=== PATIENT | female | born 1955 | race African-American/Black ===

== ENCOUNTER 2018-09-11 13:12 | Emergency (ER) | payer BC ==
[~2018-09-11] VITALS: Ht 170.2 cm; Wt 93.0 kg
[2018-09-11 13:49] VITALS: BP 134/72
--- NOTE | 2018-09-11 14:04 | Emergency Room Report ---
History of Present Illness General Chief Complaint: General Complaint Source: Patient Present Illness HPI 62yo F with a history of primary sclerosing cholangitis, liver failure, status post liver transplant, Crohn's disease, history of benign brain tumor status post resection, hypertension presents with swelling in bilateral lower extremities for the past 1 month. She also reports when she was walking up a hill yesterday she felt slightly short of breath. She called her doctor in [place] from where she is visiting, and told her she should come to the ER to be evaluated for possible blood clot. Patient denies any pain complaints, she reports her shortness of breath with walking up a hill was mild yesterday, and she reports she has been on 2 flights over the past 1 month. She denies any cough, hemoptysis, she's never had any blood clots in her life, she reports no chest pain at all today or earlier in this past month, she also denies palpitations, hemoptysis, recent surgery, recent malignancy treatment. Allergies: Coded Allergies: METRONIDAZOLE (Verified Allergy, Unknown, 09/11/18) Patient History Past Medical History: see triage record Reviewed Nursing Documentation: PMH: Agreed; PSxH: Agreed Nursing Documentation-PMH Past Medical History: No History, Except For Hx Cardiac Problems: No Hx Hypertension: Yes Hx Pacemaker: No Hx Asthma: No Hx COPD: No Hx Diabetes: No Hx Cancer: Yes - Liver cancer Hx Dialysis: No History Of Psychiatric Problem: No Hx Neurological Problems: No - Brain tumor (benign) Hx Cerebrovascular Accident: No Hx Seizures: Yes Review of Systems All Other Systems: negative except mentioned in HPI Physical Exam Vital Signs Date Time Temp Pulse Resp B/P (MAP) Pulse Ox O2 Delivery O2 Flow Rate FiO2 09/11/18 13:26 98.8 84 14 130/92 96 Room Air Sp02 EP Interpretation: reviewed, normal General Appearance: no apparent distress, alert, non-toxic Head: normocephalic Eyes: bilateral eye normal inspection, bilateral eye PERRL, bilateral eye EOMI ENT: normal ENT inspection, hearing grossly normal, normal pharynx, no angioedema, normal voice, moist mucus membranes Neck: normal inspection, full range of motion, supple, supple/symm/no masses Respiratory: chest non-tender, lungs clear, normal breath sounds, chest symmetrical, palpation of chest normal Cardiovascular #1: normal peripheral pulses, regular rate, rhythm, edema - 1+ b /l LE edema to mid tibias Cardiovascular #2: 2+ radial (R), 2+ radial (L) Gastrointestinal: normal inspection, non tender, soft, no mass, no guarding, no rebound Rectal: deferred Genitourinary: normal inspection, no CVA tenderness Musculoskeletal: back normal, gait/station normal, normal range of motion, non- tender, no calf tenderness, Sheron's Sign negative Neurologic: alert, responsive, 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 She reports 2 flights over the past month. She has no chest pain, is very well- appearing, normal vital signs, we'll obtain bilateral lower extremity ultrasound , d-dimer, chest x-ray, basic labs, she does not have full on anasarca, and is otherwise well-appearing and without complaint. D-dimer negative, duplex neg for dvt b/l LE, labs including bnp normal, cxr clear, VSS, patient with no complaint other than mild edema currently. Will dc. EKG Diagnostic Results EKG Time: 14:02 EP Interpretation: nsr rate 76, no [id number] Rate: normal Rhythm: NSR ST Segments: no acute changes ASA given to the pt in ED: No Rhythm Strip Diag. Results Rhythm Strip Time: 14:03 EP Interpretation: yes Rate: 76 Rhythm: NSR, no PVC's, no ectopy Chest X-Ray Diagnostic Results Chest X-Ray Diagnostic Results : Chest X-Ray Ordered: Yes # of Views/Limited/Complete: 1 View Indication: Shortness of Breath EP Interpretation: Yes Interpretation: no consolidation, no effusion, no pneumothorax, no acute cardiopulmonary disease Impression: No acute disease Electronically Signed by: Jeanine Dorsey MD CT/MRI/US Diagnostic Results CT/MRI/US Diagnostic Results : Imaging Test Ordered: B/L LE duplex Impression B/L negative for dvt per instrument technologist Last Vital Signs Date Time Temp Pulse Resp B/P (MAP) Pulse Ox O2 Delivery O2 Flow Rate FiO2 09/11/18 13:49 98.8 87 14 134/72 99 Room Air Disposition: HOME, SELF-CARE Condition: Stable JEANINE DORSEY M.D Sep 11, 2018 14:04
[2018-09-11 14:26] LABS: BASOPHILS % (AUTO) 1.1 % (0.0-2.0); EOSINOPHILS % (AUTO) 1.2 % (0.0-3.0); HEMOGLOBIN 13.2 G/DL (12.0-16.0); LYMPHOCYTES % (AUTO) 47.2 % (20.0-45.0); MEAN CORPUSCULAR VOLUME 84 FL (80-99); MONOCYTES % (AUTO) 9.7 % (1.0-10.0); NEUTROPHILS % (AUTO) 40.7 % (45.0-75.0); PLATELET COUNT 256 K/UL (150-450); RED BLOOD COUNT 4.77 M/UL (4.20-5.40); RED CELL DISTRIBUTION WIDTH 12.2 % (11.6-14.8); WHITE BLOOD COUNT 7.4 K/UL (4.8-10.8)
[2018-09-11 14:32] LABS: ANION GAP 10 mmol/L (5-15); BLOOD UREA NITROGEN 16 mg/dL (7-18); CALCIUM 8.9 MG/DL (8.5-10.1); CARBON DIOXIDE 25 MMOL/L (21-32); CHLORIDE 106 MMOL/L (98-107); CREATININE 0.7 MG/DL (0.55-1.30); SODIUM 140 MMOL/L (136-145)
[2018-09-11 14:42] LABS: ALANINE AMINOTRANSFERASE 33 U/L (12-78); ALBUMIN 3.6 G/DL (3.4-5.0); ALBUMIN/GLOBULIN RATIO 0.8 (1.0-2.7); ALKALINE PHOSPHATASE 84 U/L (46-116); ASPARTATE AMINO TRANSFERASE 23 U/L (15-37); BILIRUBIN,TOTAL 0.4 MG/DL (0.2-1.0)
[2018-09-11 15:44] VITALS: BP 135/78
[2018-09-11 15:45] VITALS: BP 135/78
--- NOTE | 2018-09-11 16:59 | Diagnostic Imaging Report ---
Indication: Chest pain Technique: One view of the chest Comparison: none Findings: No acute infiltrates, effusions, or congestion. Tortuous aorta. Normal heart size. Upper mediastinum unremarkable. Impression: No acute process.
--- NOTE | 2018-09-11 17:24 | Diagnostic Imaging Report ---
Indication: Bilateral leg edema and pain Technique: Grayscale and duplex images of bilateral lower extremity veins Comparison: none Findings: Bilaterally, grayscale duplex images demonstrate no evidence of intraluminal thrombus. Normal phasic Doppler waveforms. Normal compressibility. Patent bilateral greater saphenous veins. Impression: Negative for evidence of lower extremity deep venous thrombosis
== END 2018-09-11 16:00 | disposition home or self-care (01) ==
LOC: EMR 15:54
DX: R60.0 Localized edema (principal); I10 Essential (primary) hypertension; Z85.05 Personal history of malignant neoplasm of liver; Z88.8 Allergy status to other drugs, medicaments and biological substances; Z86.69 Personal history of other diseases of the nervous system and sense organs
CPT/HCPCS: 36415; 71045; 80053; 83605; 83880; 84484; 85025; 85379; 85610; 85730; 93005; 93970; 99284